=== PATIENT | male | born 1960 | race Two or more races ===

== ENCOUNTER 2018-10-09 15:12 | Emergency (ER) | payer OTHER ==
[~2018-10-09] VITALS: Ht 170.2 cm; Wt 85.7 kg
[2018-10-09 15:15] VITALS: Ht 170.2 cm; Wt 85.7 kg
[2018-10-09 17:01] LABS: BASOPHIL % 0.4 % (0-2); PLATELET COUNT 141 x10^3mcL (130-400); RED CELL DISTRIBUTION WIDTH 13.4 % (11.5-14.5)
[2018-10-09 17:20] LABS: FREE T4 0.94 ng/dL (0.76-1.46); T4(THYROXINE) 8.5 ug/dL (4.7-13.3)
[2018-10-09 17:21] LABS: CALCIUM 8.7 mg/dL (8.5-10.1); CARBON DIOXIDE 27.4 mmol/L (21-32); CHLORIDE SERUM 103 mmol/L (98-107); CREATININE SERUM 1.1 mg/dL (0.7-1.3); GFR1 > 60 mL/min; GLUCOSE SERUM 77 mg/dL (74-106); POTASSIUM SERUM 3.8 mmol/L (3.5-5.1); SODIUM SERUM 139 mmol/L (136-145)
[2018-10-09 17:23] LABS: CK-MB 1.8 ng/mL (0-3.6)
[2018-10-09 17:34] LABS: ALBUMIN 3.8 g/dL (3.4-5.0); ALKALINE PHOSPHATASE 88 U/L (46-116); ALT/SGPT 32 U/L (16-63); AST/SGOT 26 U/L (15-37); BILIRUBIN TOTAL 0.39 mg/dL (0.20-1.00); C REACTIVE PROTEIN 1.9 mg/dL (<=0.9); TOTAL PROTEIN, SERUM 7.4 g/dL (6.4-8.2)
[2018-10-09 17:44] LABS: ERYTHROCYTE SED RATE 13 mm/hr (0-20)
[2018-10-09 17:45] LABS: T3 TOTAL 0.98 ng/mL
[2018-10-09 18:13] LABS: microscopic required? NO
[2018-10-09 18:18] LABS: UA SPECIFIC GRAVITY 1.015 (1.005-1.035); urine erythrocyte NEGATIVE (NEGATIVE)
[2018-10-09 18:50] VITALS: BP 111/46
== END 2018-10-09 18:50 | disposition home or self-care (01) ==
LOC: ED 15:12
PROVIDERS: Specialist
DX: R07.89 Other chest pain (principal); F17.210 Nicotine dependence, cigarettes, uncomplicated; J40 Bronchitis, not specified as acute or chronic; E11.9 Type 2 diabetes mellitus without complications; Z86.79 Personal history of other diseases of the circulatory system
CPT/HCPCS: 36600; 84439; 87804; 99406; J2930; J7613; J7644; Q0092